=== PATIENT | female | born 1960 | race Caucasian/White ===

== ENCOUNTER 2023-07-18 10:56 | Outpatient (OUT) | payer MEDICARE, MEDICAID, SELFPAY ==
--- NOTE | 2023-07-18 11:08 | XR_ITS ---
The [address] [address] Patient Name: ANT ZIMMER MRN: [id number] date: 1960 Sex: F Assigned Patient Location: SURGOUT Current Patient Location: [facility] Accession/Order Number: [id number] Exam Date: 07/18/2023 11:40 Report Date: 07/18/2023 12:15 At the request of: HEAVENLY ALONZO Procedure: XR chest 2V EXAM: XR chest 2V HISTORY: Preop exam COMPARISON: None. TECHNIQUE: PA and lateral views of the chest. FINDINGS: The cardiomediastinal silhouette is normal. No focal consolidation is identified. There is no pneumothorax. No pleural effusion is noted. The osseous structures are intact. XR/XR chest 2V IMPRESSION: No acute cardiopulmonary process. Electronically authenticated by: BECK RODRIGUEZ Date: 07/18/2023 12:15
--- NOTE | 2023-07-18 11:08 | ECG_ITS ---
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
== END 2023-07-18 10:57 | disposition home or self-care (01) ==
LOC: PST 11:03
PROVIDERS: PCP Nurse Practitioner Family; Visit Provider Urology
DX: Z01.810 Encounter for preprocedural cardiovascular examination (principal); R31.0 Gross hematuria; R10.9 Unspecified abdominal pain; N36.8 Other specified disorders of urethra
CPT/HCPCS: 71046; 93005

== ENCOUNTER 2023-07-30 11:03 | Day surgery (SDC) | payer MEDICARE, MEDICAID, SELFPAY ==
[2023-07-18 11:28] VITALS: BP 135/75; PULSE 74; RESP 16; TEMP 36.3; O2SAT 99; BMI 24.9
[2023-07-30] VITALS (9 sets, daily range): BP systolic 128–152; BP diastolic 70–89; PULSE 63–91; RESP 14–18; TEMP 36.2–36.6; O2SAT 96–99; BMI 24.4
[2023-07-30] MEDS: LACTATED RINGER'S SOLUTION 1,000 ML 50 ML IV (11:39)
[2023-07-30] MEDS: CEFAZOLIN SODIUM/DEXTROSE,ISO 2 GM/50 ML PIGGYBACK IV (12:59)
[2023-07-30] MEDS: IOHEXOL 240 MG/ML - 10 ML VIAL INJ (13:40)
--- NOTE | 2023-07-30 14:04 | P.URON_ITS ---
Urology Surgery Operative Note Operative Note Procedure Date: 07/30/23 Time Out Performed: yes Pre-op Diagnosis: 1. 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 Gross hematuria Post-op Diagnosis: other (Gross hematuria) Procedures performed: Cystoscopy, left retrograde pyelogram, ureteroscopy, ureteral washings, left ureteral stent placement Anesthesia: General-LMA Primary Surgeon: Velia Charles Complications: none Estimated blood loss (mL): 0 Findings: left RPG with mild left proximal ureteral narrowing ~ 1 cm in length, no hydronephrosis or discrete filling defects. Prompt excretion of contrast. URS without tumors or discrete stricture, mildly pale mucosa with curvature but able to accommodate ureteroscope. No bladder tumors or lesions Specimens: left ureteral washings for cytology Drains: 7Fr x 22-30 cm JJ left ureteral stent Indications for Procedures: 62 year old female with a history of gross hematuria and mild intermittent left flank pain. Cystoscopy negative for lesions or tumors. Urine cytology negative. CT Urogram 06/30/23 noted questionable left renal pelvis/proximal ureteral thickening without obstruction. After discussion of risks/benefits of management options, she elected to proceed with cystoscopy, left retrograde pyelogram, ureteroscopy with possible biopsy, possible dilation, possible laser ablation, ureteral stent placement under general anesthesia. Risks were discussed including but not limited to bleeding, pain, infection, damage to surrounding structures, strictures, and need for additional procedures. The patient understands the stent is not permanent and needs to be removed or exchanged within 3 months to prevent encrustation, infection, invasive procedures and/or permanent renal damage. Detailed description of Procedure: After informed consent was obtained, the patient was brought to the operating room and transferred onto the operating table in supine position. Sequential compression devices were placed on bilateral lower extremities. The patient received the appropriate dose of preoperative IV antibiotics and general anesthe lacy LMA was induced. They were positioned in modified dorsolithotomy with the appropriate pressure points padded, prepped, and draped in the usual sterile fashion for this procedure. An operative safety timeout was performed confirming the patient's identity, laterality and procedure, and all present agreed to proceed. I began by inserting a 22 Bangladeshi rigid cystoscope with 30 degree lens into the patient's urethra and bladder without difficulty. There were no bladder tumors, lesions, stones or foreign bodies. Bilateral ureteral orifices were orthotopic and patent. I turned my attention to the left ureteral orifice and a 6- Bangladeshi open-ended catheter was inserted into the ureteral orifice and dilute contrast was injected for retrograde pyelogram with findings as above. A Sensor wire was inserted into the proximal ureter up just before narrowing confirmed on fluoroscopy. Next a flexible ureteroscope was inserted over the wire and advanced to the ureter under fluoroscopic guidance. A ureteroscopy and renoscopy was performed without findings of urothelial tumors or lesions. Findings as above. Washings were sent for cytology. The wire was reinserted and a pull down ureteroscopy was performed confirming no abnormalities noted. The wire was backloaded through the cystoscope and a 7Fr x 22-30cm JJ variable length ureteral stent was advanced over the wire, noting adequate curl in the renal pelvis and bladder on fluoroscopic and direct visualization. The bladder was drained and inspected one final time to ensure adequate position of stent and no undue trauma to the bladder was done. The bladder was drained and cystoscope was removed. The patient tolerated the procedure well without complication. The patient was awakened from anesthesia and sent to PACU in stable condition. Plan: Discharge home with stent pain medications. Follow up next week for in- office cystoscopy, stent removal. Other Provider present: No Post Operative care instructions: see discharge instructions
[2023-07-30] MEDS: LACTATED RINGER'S SOLUTION 1,000 ML 75 ML IV (14:16)
--- NOTE | 2023-07-30 14:29 | PC.NURSE ---
PATIENT URINATED A LARGE AMOUNT OF URINE WITH MUCUS AND TINGED PINK.
== END 2023-07-30 14:51 | disposition home or self-care (01) ==
PROVIDERS: PCP Nurse Practitioner Family; Visit Provider Urology
PROC: (CPT 910; principal; 2023-07-30 12:30)
DX: R31.0 Gross hematuria (principal); R10.9 Unspecified abdominal pain; N28.9 Disorder of kidney and ureter, unspecified; N95.2 Postmenopausal atrophic vaginitis; R35.0 Frequency of micturition; N39.3 Stress incontinence (female) (male); F17.210 Nicotine dependence, cigarettes, uncomplicated
CPT/HCPCS: 52332; 52354; 74420; 88112; 99999; C1874; J1094; J2704; Q9966